=== PATIENT | female | born 1995 | race Caucasian/White ===

== ENCOUNTER 2016-08-07 15:41 | Emergency (ER) | payer OTHER ==
[~2016-08-07] VITALS: Ht 160 cm; Wt 60.0 kg
[2016-08-07 15:42] VITALS: BP 133/80; PULSE 116; RESP 14; TEMP 98.3; O2SAT 99
[2016-08-07 19:07] VITALS: BP 120/77; PULSE 93; RESP 16; TEMP 97.9
[2016-08-07] MEDS ORDERED: SODIUM CHLOR 0.9% 1000 ML INJ 1,000 ML IV ONE (19:12)
[2016-08-07] MEDS ORDERED: SODIUM CHLORIDE 0.9% FLUSH 5 ML FLUSH IVF PRN (19:15)
[2016-08-07] MEDS ORDERED: METOCLOPRAMIDE HCL 10 MG/2 ML VIAL IVP ONE (19:15)
[2016-08-07] MEDS ORDERED: diphenhydrAMINE HCL 50 MG/ML VIAL IVP ONE (19:15)
[2016-08-07 19:18] VITALS: O2SAT 100
--- NOTE | 2016-08-07 19:21 | PD ---
HPI Chief Complaint: Headache Time Seen by Provider: 19:08 Travel History International Travel<30 days: No Contact w/Intl Traveler<30days: No Traveled to known affect area: No History of Present Illness HPI This is a 20-year-old female who reports a history of migraines, approximately 2 per year for the past 8 years her presents for evaluation of headache and occasional muscle twitching. She reports that for the past 5 days she's been having a frontal and occipital headache which she describes as sharp/fire-like headache which comes and goes. She has not tried using any medication at help with symptoms. She does endorse some nausea as well. She also reports over the past several days she began having a twitching in her face and in her legs and arms as she is falling asleep. It lasts for a few minutes and then resolves. She is awake during the episodes and there is no incontinence or tongue biting. She also endorses occasional twitching of her muscles during the day as well. Denies any blurred vision, fevers or chills, weakness, abdominal pain, urinary symptoms. She has no other complaints at this time. 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 HEAD: Atraumatic. Normocephalic. EYES: Pupils equal and round. No scleral icterus. No injection or drainage. ENT: No nasal bleeding or discharge. Mucous membranes pink and moist. NECK: Trachea midline. No JVD. CARDIOVASCULAR: Regular rate and rhythm. No murmur appreciated. RESPIRATORY: No accessory muscle use. Clear to auscultation. Breath sounds equal bilaterally. GASTROINTESTINAL: Abdomen soft, non-tender, nondistended. Hepatic and splenic margins not palpable. MUSCULOSKELETAL: No obvious deformities. No edema. NEUROLOGICAL: Awake and alert. No obvious cranial nerve deficits. Motor grossly within normal limits. Normal speech. PSYCHIATRIC: Appropriate mood and affect; insight and judgment normal. Data Data Last Documented VS Vital Signs Date Time Temp Pulse Resp B/P Pulse Ox O2 Delivery O2 Flow Rate FiO2 08/07/16 19:18 100 Room Air 08/07/16 19:07 97.9 93 16 120/77 Orders Complete Blood Count With Diff (08/07/16 19:12) Basic Metabolic Panel (Bmp) (08/07/16 19:12) Ct Brain W/O Iv Contrast(Rout) (08/07/16 19:12) Ecg Monitoring (08/07/16 19:12) Iv Access Insert/Monitor (08/07/16 19:12) Oximetry (08/07/16 19:12) Sodium Chloride 0.9% Flush (Ns Flush) (08/07/16 19:15) Magnesium (Mg) (08/07/16 19:12) Diphenhydramine Inj (Benadryl Inj) (08/07/16 19:15) Metoclopramide Inj (Reglan Inj) (08/07/16 19:15) Sodium Chlor 0.9% 1000 Ml Inj (Ns 1000 M (08/07/16 19:12) Ed Urine Pregnancytest Poc (08/07/16 19:12) Potassium Chloride (Kcl) (08/07/16 20:15) Labs Laboratory Tests Test 08/07/16 19:15 White Blood Count 7.8 TH/MM3 Red Blood Count 4.22 MIL/MM3 Hemoglobin 13.5 GM/DL Hematocrit 38.8 % Mean Corpuscular Volume 92.0 FL Mean Corpuscular Hemoglobin 32.1 PG Mean Corpuscular Hemoglobin 34.8 % Concent Red Cell Distribution Width 12.3 % Platelet Count 274 TH/MM3 Mean Platelet Volume 9.7 FL Neutrophils (%) (Auto) 58.4 % Lymphocytes (%) (Auto) 32.5 % Monocytes (%) (Auto) 6.7 % Eosinophils (%) (Auto) 1.2 % Basophils (%) (Auto) 1.2 % Neutrophils # (Auto) 4.6 TH/MM3 Lymphocytes # (Auto) 2.5 TH/MM3 Monocytes # (Auto) 0.5 TH/MM3 Eosinophils # (Auto) 0.1 TH/MM3 Basophils # (Auto) 0.1 TH/MM3 CBC Comment DIFF FINAL Differential Comment Sodium Level 139 MEQ/L Potassium Level 3.2 MEQ/L Chloride Level 103 MEQ/L Carbon Dioxide Level 25.5 MEQ/L Anion Gap 11 MEQ/L Blood Urea Nitrogen 6 MG/DL Creatinine 0.74 MG/DL Estimat Glomerular Filtration 101 ML/MIN Rate Random Glucose 87 MG/DL Calcium Level 9.2 MG/DL Magnesium Level 2.1 MG/DL MDM Medical Decision Making Medical Screen Exam Complete: Yes Emergency Medical Condition: Yes Medical Record Reviewed: Yes Interpretation(s) CT brain no acute abnormalities BMP potassium 3.2 otherwise unremarkable CBC unremarkable Negative urine test Differential Diagnosis Myoclonus, Restless leg syndrome, electrolyte abnormality, migraine without aura , tumor, seizure Narrative Course 20-year-old female with history of migraines presents with intermittent headache for the past 5 days as well as twitching in the face, arms and legs particular she is falling asleep. Symptoms last for a few minutes at a time and then resolved, likely myoclonus. The patient is awake during the episodes. Physical examination is reassuring. Plans for basic lab work, CT of the brain. The patient be given Reglan and fluids and Benadryl. Discussed with Dr. Petty who agrees with plan of care. Patient's lab work and imaging studies have been reviewed. Potassium mildly low at 3.2. The patient be given oral potassium chloride. Upon reexamination the patient's headache has resolved. The patient is stable for outpatient follow-up with primary care physician, possibly sleep study as an outpatient if symptoms persist to further characterize the issue. She is agreeable. Diagnosis Primary Impression: Cephalgia Qualified Code: R51 - Nonintractable headache, unspecified chronicity pattern , unspecified headache type Additional Impressions: Myoclonus Hypokalemia Referrals: Primary Care Physician Additional Instructions: Follow-up close with primary care physician. Stay well hydrated and well- nourished. Return for any emergent medical conditions. Med/Other Pt SpecificInfo: No Change to Meds Scripts No Active Prescriptions or Reported Meds Disposition: 01 DISCHARGE HOME Condition: Stable Burke Diaz Aug 07, 2016 19:21
[2016-08-07 19:54] LABS: AUTOMATED NEUTROPHIL # 4.6 TH/MM3 (1.8-7.7); BASOPHIL # 0.1 TH/MM3 (0-0.2); BASOPHIL % 1.2 % (0.0-2.0); EOSINOPHIL # 0.1 TH/MM3 (0-0.4); EOSINOPHIL % 1.2 % (0.0-4.0); HEMATOCRIT 38.8 % (35.0-46.0); HEMO FLAGS DIFF FINAL; LYMPH % 32.5 % (9.0-44.0); LYMPHOCYTE # 2.5 TH/MM3 (1.0-4.8); MEAN CORPUSCULAR HEMOGLOBIN 32.1 PG (27.0-34.0); MEAN CORPUSCULAR HGB CONC 34.8 % (32.0-36.0); MONO % 6.7 % (0.0-8.0); NEUT % 58.4 % (16.0-70.0); PLATELET COUNT 274 TH/MM3 (150-450); RED BLOOD COUNT 4.22 MIL/MM3 (4.00-5.30); RED CELL DISTRIBUTION WIDTH 12.3 % (11.6-17.2); WHITE BLOOD COUNT 7.8 TH/MM3 (4.0-11.0)
--- NOTE | 2016-08-07 19:59 | RADRPT ---
EXAM DATE/TIME: 08/07/2016 19:40 [facility] COMPARISON: No previous studies available for comparison. INDICATIONS : Headaches with nausea and dizziness. RADIATION DOSE: 34.29 CTDIvol (mGy) MEDICAL HISTORY : None SURGICAL HISTORY : None. ENCOUNTER: Initial ACUITY: 1 day PAIN SCALE: 7/10 LOCATION: Bilateral cranial TECHNIQUE: Multiple contiguous axial images were obtained of the head. Using automated exposure control and adj ustment of the mA and/or kV according to patient size, radiation dose was kept as low as reasonably a chievable to obtain optimal diagnostic quality images. FINDINGS: CEREBRUM: The ventricles are normal for age. No evidence of midline shift, mass lesion, hemorrhage or acute in farction. No extra-axial fluid collections are seen. POSTERIOR FOSSA: The cerebellum and brainstem are intact. The 4th ventricle is midline. The cerebellopontine angle i s unremarkable. EXTRACRANIAL: The visualized portion of the orbits is intact. SKULL: The calvaria is intact. No evidence of skull fracture. CONCLUSION: No acute disease. Noam Castro MD on August 07, 2016 at 19:57 Board Certified Radiologist. This report was verified electronically.
[2016-08-07 20:05] LABS: BICARBONATE 25.5 MEQ/L (21.0-32.0); MAGNESIUM 2.1 MG/DL (1.5-2.5); POTASSIUM 3.2 MEQ/L (3.5-5.1)
[2016-08-07] MEDS ORDERED: POTASSIUM CHLORIDE 20 MEQ CONTROLLED RELEASE TAB PO ONE (20:15)
[2016-08-07 20:51] VITALS: BP 114/82
== END 2016-08-07 21:03 | disposition home or self-care (01) ==
LOC: NEPE 15:41
DX: R51 Headache (principal); G25.3 Myoclonus; E87.6 Hypokalemia; F12.90 Cannabis use, unspecified, uncomplicated
CPT/HCPCS: 70450; 80048; 83735; 84703; 85025; 96361; 96374; 96375; 99284; J1200; J2765; J7030